=== PATIENT | male | born 1965 | race Caucasian/White ===

== ENCOUNTER → 2016-04-27 | Outpatient (CLI) | payer OTHER ==
[~2016-04-27] MED LIST: ASPCH81X PO; Aspirin PO; EYED OPL; FAMO20TA11 PO; FAMO20TA9 PO; FLUT0.15 NAE; MONT1TAB3 PO; MULT-506 PO; PRED1SUS OPL; flonase
[2016-04-27 17:53] LABS: CHOLESTEROL/HDL RATIO 5.3; PROSTATE SPECIFIC ANTIGEN 1.12 ng/ml (0.000-4.000)
== END | disposition home or self-care (01) ==
LOC: C.LABBFT 10:24
PROVIDERS: ATTEND Internal Medicine
DX: R74.8 Abnormal levels of other serum enzymes (principal); E78.5 Hyperlipidemia, unspecified; Z12.5 Encounter for screening for malignant neoplasm of prostate

== ENCOUNTER → 2016-05-10 | Day surgery (SDC) | payer OTHER ==
[2016-04-28 10:21] VITALS: Ht 185.4 cm; Wt 121.8 kg
[~2016-05-10] VITALS: Ht 185.4 cm; Wt 121.8 kg
[~2016-05-10] MED LIST changes: +500ML BSS 0.3ML EPI 1:1000PF IRRIG ONE; +ACETAMINOPHEN 325 MG TAB PO PRN; +AMVISC PLUS 0.8ML SYRINGE INT OCU ONE; -Aspirin PO; +BSS FLUSH ONE; +EpINEphrine INJ 1MG/ML AMP 1 MG/ML AMP ONE; -FAMO20TA11 PO; +LACTATED RINGER'S 1000ML 500 ML IV SCH; +LIDOCAINE 3.5% OPH GEL PER APPLICATION CHARGE ONE; +LIDOCAINE HCL 1% MPF 2 ML VIAL ONE; +MIDAZOLAM HCL 1 MG/ML 2ML VIAL ONE; +OCUCOAT 1 ML SOLN IO ONE; +POVIDONE-IODINE OP SOLN 30 ML BTL ONE; +PROPARACAINE 0.5% OP SOLN PER DROP CHARGE OPL SCH; +TOBRAMYCIN/DEXAMETHASONE OPH OINT PER APPLN CHARGE ONE; -flonase
--- NOTE | 2016-05-10 11:26 | History & Physical Bridge - SC ---
H&P Re-Evaluation Bridge Note: I have examined the patient, reviewed the History & Physical and in the interval since the performance of the History & Physical I have noted the following changes of clinical significance: Diagnosis: Left Cataract Procedure: Left Cataract Removal with Lens Implant No changes noted
[2016-05-10] MEDS: PHENYLEPHRINE HCL 2.5% OP SOLN PER DROP CHARGE OPL SCH ×2 (11:47→11:52)
[2016-05-10] MEDS: TROPICAMIDE 1% OP SOLN PER DROP CHARGE OPL SCH ×2 (11:48→11:53)
[2016-05-10] MEDS: CYCLOPENTOLATE HCL 1% OP SOLN PER DROP CHARGE OPL SCH ×2 (11:49→11:54)
[2016-05-10] MEDS: KETOROLAC 0.5% OP SOLN PER DROP CHARGE OPL SCH ×2 (11:50→11:55)
[2016-05-10] MEDS: GATIFLOXACIN OP SOLN PER DROP CHARGE OPL SCH ×2 (11:51→12:01)
--- NOTE | 2016-05-10 12:38 | Discharge Instructions-SurgCtr ---
Discharge Instructions Date of Service May 10, 2016. Visit Reason for Visit: Cataract Left Eye Discharge Discharge Diagnosis / Problem: cataract Discharge Goals Goal(s): Improve function Activity Recommendations Activity Limitations: per Instructions/Follow-up section Anesthesia . Post Anesthesia Instructions: If you have had General Anesthesia or IV Sedation: * Do not drive today. * Resume driving when surgeon permits. * Do not make important decisions or sign legal documents today. * Call surgeon for: 1. Temperature elevations greater than 101 degrees F. 2. Uncontrollable pain. 3. Excessive bleeding. 4. Persistent nausea and vomiting. 5. Medication intolerance (nausea, vomiting or rash). * For nausea and vomiting use only clear liquids such as: tea, soda, bouillon until nausea subsides, then gradually increase diet as tolerated. * If you have any concerns or questions, call your surgeon's office. If physician is unavailable and it is an emergency, call 911 or go to the nearest emergency room. . Instructions / Follow-Up Instructions / Follow-Up ACTIVITY RECOMMENDATIONS: * No strenuous lifting, jogging or running for 4 days * No swimming or yard work for 1 week. * Limited bending is permitted, such as putting on shoes. RETURN TO SCHOOL/WORK: No work until seen by physician in office. MEDICATIONS: Resume previous medications unless instructed otherwise by your surgeon. This includes eye drops for glaucoma. Zymaxid/Gatifloxacin (velez cap) - one drop every 2 hours until bedtime Nevanac/Ilevro/Prolensa/Ketorolac (peres cap) - one drop every 4 hours until bedtime Prednisolone (white/pink cap, SHAKE WELL) - one drop every 2 hours until bedtime Starting tomorrow - all 3 drops every 4 hours until seen in the office Optive drops - as needed for discomfort SPECIAL CARE INSTRUCTIONS: * Wear eyeshield when sleeping, for four nights. * You may wear your own glasses or sunglasses while awake. * You may read or watch TV * You may shower and wash your face, but be gentle around the eye and pat dry. * Blurry vision and mild irritation are normal. * Call office if pain is more severe or vision becomes dark at . FOLLOW UP VISIT: Follow-up with Dr Bryant tomorrow. Diet Recommendations Home Diet: resume previous diet Procedures Procedures Performed: Left Cataract Phacoemulsification With Intraocular Lens Implant Pending Studies Studies pending at discharge: no Medical Emergencies . Who to Call and When: Medical Emergencies: If at any time you feel your situation is an emergency, please call 911 immediately. . Non-Emergent Contact Non-Emergency issues call your: [employer] . . "Provider Documentation" section prepared by Ernst Bryant.
--- NOTE | 2016-05-10 12:39 | [facility] Operative Report ---
Operative Report Date of Service May 10, 2016. Operative Report 1. PREOPERATIVE DIAGNOSIS: Cataract of the left eye. 2. POSTOPERATIVE DIAGNOSIS: Same. 3. PROCEDURE: Phacoemulsification with intraocular lens implantation of the left eye. SURGEON: Dr. Ernst Bryant. ANESTHESIA: Topical Lidocaine gel, 1% Non- Preserved intracameral Lidocaine, and monitored intravenous sedation. INDICATIONS FOR THE PROCEDURE: The patient is a 50 - year-old male with a history of cataract of the left eye causing significant visual impairment. The details of the proposed procedure were explained to the patient who asked appropriate questions and following discussion of all risks, benefits and alternatives agreed to have the procedure done. 4. OPERATION AND FINDINGS: DESCRIPTION OF PROCEDURE: After informed consent was obtained, the patient was brought to the Operating Room at the [facility]. The patient was placed in a supine position and then the left eye was prepped and draped in the usual sterile fashion for intraocular surgery. A drop of topical Lidocaine gel was placed in the operative eye. A wire lid speculum was then placed in the fornices. A corneal paracentesis was then created temporally. The Non-Preserved Lidocaine was then instilled into the anterior chamber. The anterior chamber was then pressurized with viscoelastic. A 2.0 mm clear corneal incision was then created temporally. A cystotome was inserted into the anterior chamber and used to create a tear in the anterior lens capsule. This capsular tear was then used to create a small flap and the flap was dragged in a counterclockwise direction in order to create a continuous curvilinear capsulorrhexis. Hydrodissection was accomplished with balanced salt solution. Phacoemulsification of the lens nucleus was then performed in a standard kzcabe-kcz-cwabocx technique. The phaco time was 22 seconds with an average power of 11 %. The remaining cortical material was removed using irrigation aspiration. The capsular bag was then filled with viscoelastic. A [employer]ch [employer] Lomb MI60L + 19.5 diopters lens was then loaded into the injector and injected into the capsular bag. The remaining viscoelastic was removed with the irrigation aspiration handpiece. The wound was hydrated and then checked and found to be watertight. The intraocular pressure was checked and found to be adequate. The wire lid speculum was removed and the patient's face was cleaned and dried. TobraDex ointment was placed in the inferior fornix. The patient was discharged to the Recovery Room having tolerated the procedure well. There were no complications. The patient will be seen tomorrow in the office for follow-up. I attest to the content of the Intraoperative Record and any orders documented therein. Any exceptions are noted below.
[2016-05-10 12:41] VITALS: TEMP 36.7
--- NOTE | 2016-05-10 12:54 | Anesthesia Progress Nt - [facility] ---
Anesthesia Post Op Note Date & Time May 10, 2016 at 12:54 Vital Signs Pain Intensity: 0 Vital Signs Past 12 Hours Date Time Temp Pulse Resp B/P Pulse Ox O2 Delivery O2 Flow Rate FiO2 05/10/16 12:41 36.7 64 16 150/88 94 Room Air 05/10/16 11:30 36.8 69 16 157/93 94 Room Air Notes Mental Status: alert / awake / arousable, participated in evaluation Pt Amnestic to Procedure: Yes Nausea / Vomiting: adequately controlled Pain: adequately controlled Airway Patency, RR, SpO2: stable & adequate BP & HR: stable & adequate Hydration State: stable & adequate Anesthetic Complications: no major complications apparent
[2016-05-10 13:02] VITALS: BP 168/94; PULSE 61; O2SAT 96
== END | disposition home or self-care (01) ==
LOC: X.SURG 11:16
PROVIDERS: ATTEND Ophthalmology
DX: H26.9 Unspecified cataract (principal); Z87.891 Personal history of nicotine dependence; E66.9 Obesity, unspecified; Z68.35 Body mass index [BMI] 35.0-35.9, adult

== ENCOUNTER → 2016-07-05 | Day surgery (SDC) | payer OTHER ==
[2016-05-26 12:48] VITALS: BMI 35.0
[2016-07-04 07:34] VITALS: Ht 185.4 cm; Wt 121.8 kg
[~2016-07-05] VITALS: Ht 185.4 cm; Wt 121.8 kg
[~2016-07-05] MED LIST changes: -500ML BSS 0.3ML EPI 1:1000PF IRRIG ONE; -ACETAMINOPHEN 325 MG TAB PO PRN; -AMVISC PLUS 0.8ML SYRINGE INT OCU ONE; +ATROPINE SULFATE 0.1 MG/ML 5ML SYR IV PRN; -BSS FLUSH ONE; +CYCLOPENTOLATE HCL 1% OP SOLN PER DROP CHARGE OPR SCH; +EpHEDrine SULFATE INJ 50 MG/ML AMP IV PRN; +GATIFLOXACIN OP SOLN PER DROP CHARGE OPR SCH; +KETOROLAC 0.5% OP SOLN PER DROP CHARGE OPR SCH; -OCUCOAT 1 ML SOLN IO ONE; +PHENYLEPHRINE HCL 2.5% OP SOLN PER DROP CHARGE OPR SCH; -PROPARACAINE 0.5% OP SOLN PER DROP CHARGE OPL SCH; +PROPARACAINE 0.5% OP SOLN PER DROP CHARGE OPR SCH; +TROPICAMIDE 1% OP SOLN PER DROP CHARGE OPR SCH
== END | disposition home or self-care (01) ==
LOC: C.PAT 11:32 → EDSTATUS 12:30
PROVIDERS: ATTEND Ophthalmology
DX: H26.9 Unspecified cataract (principal); Z53.8 Procedure and treatment not carried out for other reasons

== ENCOUNTER 2019-04-26 14:11 | Inpatient (IN) ==
--- OUTSIDE RECORDS SUMMARY | 2019-04-26 14:13 | External Medical Summary | Continuity of Care Document ---
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) Snoring (786.09) (R06.83) Allergic rhinitis (477.9) (J30.9) Burning sensation (782.0) (R20.8) Abnormal glucose (790.29) (R73.09) Abnormal iron saturation (790.6) (R79.0) Herpes zoster (053.9) (B02.9) 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 Refills: 0 Vitamin B Complex TABS; gnio duncan M.D. Refills: 0 Vitamin D3 TABS; gino duncan M.D. Refills: 0 Zyrtec TABS; gino directed Amado Refills: 0 Fluticasone Propionate 50 MCG/ACT Nasal Suspension; USE 2 SPRAYS IN EACH NOSTRIL ONCE DAILY STEVEN Baldwin Start: 16-Dec-2014 Quantity: 1 16 GM Bottle Refills: 1 Viagra 50 MG Oral Tablet; TAKE 1 TABLET PRN 1 tab 1 hour before needed max 2 tabs/24 hours MDD:100mg STEVEN Baldwin Start: 22-Apr-2015 Quantity: 6 Refills: 5 Procedures Procedures not documented Immunizations Immunizations not documented Family History Father Family history of Brain tumor (239.6) (D49.6) Status: Active Social History - Smoking Status Ex-smoker Plan of Treatment Planned Observations Planned Goals not documented Results No Known Results Results not documented Encounters Appointment; Toña Urias CRNP 16-Nov-2017 10:30 Encounter Diagnosis: Problem not documented
[2019-04-26] MEDS ORDERED: MoRPHine SULFATE 10 MG/ML CARP/VIAL IV STA (14:25)
--- NOTE | 2019-04-26 14:27 | Emergency Department Note ---
ED Visit Note I assisted attending Dr. Chatman in the care of this patient. Please see attending's note for details of the visit. Kalpana Cruz MD Manager Presentation PGY-3 . Resident Activity Tracking Resident Involvement: Resident Care Provided Care Provided: Adult ED
[2019-04-26] MEDS ORDERED: ONDANSETRON INJ 2 MG/ML 2 ML VIAL IV STA (14:42)
[2019-04-26] MEDS ORDERED: ONDANSETRON INJ 2 MG/ML 2 ML VIAL ONE (14:43)
[2019-04-26 15:05] LABS: Basophils # (auto) 0.02 K/uL (0-0.2); Basophils % (auto) 0.2 %; Eosinophils # (auto) 0.03 K/uL (0-0.5); Eosinophils % (auto) 0.3 %; Hematocrit (blood only) 46.4 % (42-52); Hemoglobin 16.1 g/dL (14.0-18.0); Immature Granulocytes # (auto) 0.03 K/uL (0.00-0.02); Immature Granulocytes % (auto) 0.3 %; Lymphocytes # (auto) 0.94 K/uL (1.2-3.4); Mean Corpuscular Hemoglobin 34.3 pg (25-34); Mean Corpuscular Hgb Conc 34.7 g/dL (32-36); Mean Corpuscular Volume 98.9 fL (80-100); Monocytes # (auto) 0.49 K/uL (0.11-0.59); Monocytes % (auto) 5.7 %; Neutrophils # (auto) 7.07 K/uL (1.4-6.5); Neutrophils % (auto) 82.5 %; Platelet Count 144 K/uL (130-400); RDW Coefficient of Variation 12.2 % (11.5-14.5); RDW Standard Deviation 44.2 fL (36.4-46.3); Red Blood Count 4.69 M/uL (4.7-6.1); White Blood Count 8.58 K/uL (4.8-10.8)
[2019-04-26 15:07] LABS: Appearance Urine Clear (Clear); Bacteria Urine Automated Negative (Negative); Bilirubin Urine Negative (Negative); Blood Urine 1+ (Negative); Color Urine Yellow; Epithelial Cell Urine Auto 0-5 /lpf (0-5); Glucose Urine UA Negative (Negative); Ketones Urine Negative (Negative); Leukocyte Esterase Urine Negative (Negative); Nitrite Urine Negative (Negative); Protein Urine Trace (Negative); RBC Urine Automated 0-4 /hpf (0-4); Specific Gravity Urine 1.021 (1.000-1.030); Urobilinogen Urine Negative (Negative)
[2019-04-26 15:12] LABS: iSTAT Creatinine 1.2 mg/dl (0.6-1.3); iSTAT Hemoglobin 16.3 g/dl (14.0-18.0); iSTAT Ionized Calcium 1.15 mmol/l (1.12-1.32); iSTAT Potassium 3.7 mmol/L (3.3-5.0)
[2019-04-26 15:20] LABS: Albumin Level 3.8 gm/dl (3.4-5.0); BUN Creatinine Ratio 14.2 (10-20); Calcium 8.8 mg/dl (8.5-10.1); Creatinine Clr Calc Pharmacy 96.3 ml/min; Est GFR (African American) 80.1; Est GFR (Non-African American) 69.1; Potassium 3.7 mmol/L (3.5-5.1)
[2019-04-26 15:23] LABS: Bilirubin,Total 0.4 mg/dl (0.2-1); Total Protein 7.8 gm/dl (6.4-8.2)
[2019-04-26] MEDS ORDERED: IOVERSOL 100ml IV PRN (15:26)
--- NOTE | 2019-04-26 15:34 | XRay Report ---
XR chest 1V portable HISTORY: 53 years-old Male hypoxia acute hypoxia COMPARISON: CT abdomen and pelvis of same day, chest radiograph 11/16/2017 TECHNIQUE: Portable AP view of the chest FINDINGS: Minimal dependent bibasilar atelectasis. No pneumothorax, pleural effusion, overt pulmonary edema or airspace consolidation typical for pneumonia. Cardiac silhouette is upper limits of normal in size. M ild degenerative changes of the shoulders and spine. IMPRESSION: No acute process. ACT 112: Negative or not required by law. The above report was generated using voice recognition software. It may contain grammatical, syntax o r spelling errors. Electronically signed by: Blayne Temple M.D. 04/26/2019 3:32 PM
--- NOTE | 2019-04-26 15:46 | CT Scan Report ---
CT OF THE ABDOMEN AND PELVIS WITH CONTRAST CLINICAL HISTORY: Left lower quadrant abdominal pain. COMPARISON STUDY: Right upper quadrant ultrasound March 30, 2015 TECHNIQUE: Following IV administration of 94 mL of Optiray-320, axial images of the abdomen and pelvi s were obtained from the lung bases to the proximal femurs. Images were reviewed in the axial, sagitt al, and coronal planes. IV contrast was administered without complication. Automated exposure contro l was utilized for the study. A dose lowering technique was utilized adhering to the principles of A KASIE. CT DOSE: 1231.77 mGy.cm FINDINGS: Lung bases are unremarkable. A 9 mm x 4 mm proximal left ureteral calculus results in mild to moderate left hydronephrosis with delayed nephrogram and perinephric infiltration. Note is made of a 4 mm left renal calculus and a 4 mm calculus within lower pole of the right kidney. Fatty infiltra tion of the liver is noted. The spleen, adrenal glands and pancreas are normal. There is no evidence for a bowel obstruction. The appendix is normal. There are no suspicious osseous lesions. There is no evidence for a bowel obstruction. No biliary or pancreatic ductal dilatation is noted. IMPRESSION: 1. 9 mm x 4 mm proximal left ureteral calculus which results in mild to moderate left hydronephrosis with delayed nephrogram and perinephric infiltration. 2. Bilateral nephrolithiasis. 3. Fatty liver. ACT 112: Negative or not required by law. Electronically signed by: Kurt Valles M.D. 04/26/2019 3:44 PM
[2019-04-26] MEDS ORDERED: MoRPHine SULFATE 4 MG/ML 1 ML CARP\\VIAL IV STA ×2 (16:03→18:06)
[2019-04-26] MEDS: SODIUM CHLORIDE 0.9% 1000ML 1,000 ML IV SCH ×3 (16:14→18:58)
--- NOTE | 2019-04-26 17:33 | History & Physical Report ---
Date of Service April 26, 2019 Assessment & Plan (1) Nephrolithiasis: Admit to [facility] on telemetry, Vital signs every 4 hours, Continue IV fluid hydration, Pain management and antinausea management, Consult urology, N.p.o. after midnight for possible procedure tomorrow and removal of the kidney stone. DVT prophylaxis: SCDs and teds Full code Present on Admission?: Yes (2) Renal colic on left side: As discussed above Present on Admission?: Yes (3) Seasonal allergies: Continue Cetrizine Present on Admission?: Yes (4) Elevated transaminase level: Likely due to fatty liver Hemoglobin A1c pending Continue trending down transaminases, Hepatitis panel pending, Liver sonogram pending, Alpha-fetoprotein pending Consult GI Present on Admission?: Yes History of Present Illness Chief Complaint: Left flank pain Primary Care Provider: SANTOS Reilly The patient is a 54 years old male without significant past medical history who presents to the emergency room complaining of left flank pain that started this morning and it was worsening. Patient denies fever, chills, chest pain, shortness of breath, abdominal pain, frequency, urgency. Labs are reviewed: WBC is 8.58, hemoglobin 16.1, hematocrit 46.4, platelets 144, sodium 139, potassium 3.7, chloride 105, carbon dioxide 27, BUN 17, creatinine 1.2, GFR 69.1, AST 132, ALT 231, alkaline phosphatase 71, total protein 7.8, albumin 3.8, globulin 4, lipase 310. Abdominal CT shows lung bases are unremarkable, a 9 mm x 4 mm proximal left ureteral calculus that results in mild to moderate left hydronephrosis with delayed nephrogram and perinephritic infiltration. Note is made of a 4 mm left renal calculus and a 4 mm calculus within the lower pole of the right kidney. Fatty infiltration of the liver is noted. The spleen and adrenal glands and pancreas are normal. There is no evidence for a bowel obstruction. The appendix is normal. There is no suspicious osseous lesion. There is no evidence for a bowel obstruction. No biliary or pancreatic duct dilatation is noted. Chest x-ray no acute process. Minimal dependent bibasilar atelectasis. No pneumothorax, pleural effusion, overt pulmonary edema or airspace consolidation typical for pneumonia. Cardiac silhouette is upper limit of the normal in size. Mild degenerative changes of the shoulders and spine. Decision was made to admit patient to [facility] on telemetry for further evaluation and treatment of nephrolithiasis and possible surgical intervention. Allergies Allergy/AdvReac Type Severity Reaction Status Date / Time No Known Allergies Allergy Verified 04/26/19 16:03 Home Medications Home Medications Medication Instructions Recorded Confirmed Type Liver Aid 1 tab PO QAM 04/26/19 04/26/19 History aspirin 81 mg PO QAM 04/26/19 04/26/19 History cetirizine [Zyrtec] 10 mg PO QAM 04/26/19 04/26/19 History magnesium 250 mg PO QAM 04/26/19 04/26/19 History ktcczlxoexom-[id number]-[id number] 1 tab PO QAM 04/26/19 04/26/19 History [Multivitamin 50 Plus] omeprazole magnesium [Prilosec OTC] 20 mg PO QAM 04/26/19 04/26/19 History Past Med/Surg History Family History Other No pertinent family history Social History Preferred Language: Beninese marital status: current occupational status: employed Feels Safe at Home: Yes Smoking Status: Never smoker Review of Systems Review of Systems: All systems reviewed & are unremarkable except as noted in HPI & below Physical Exam Constitutional: WD/WN, vitals as above well developed, + ill appearing and + morbidly obese Eyes: PERRL, conjunctivae normal, anicteric sclerae ENMT: external ear and nose normal, oropharynx normal Neck: trachea midline, no thyromegaly Respiratory: normal respiratory effort, lungs clear to auscultation Cardiovascular: RRR, no murmur, no edema Rate/Rhythm: + tachycardic Gastrointestinal (Abdomen): normal bowel sounds, soft, nontender, no hepatosplenomegaly Musculoskeletal: no cyanosis or clubbing, extremities motor strength 5/5 Skin: no rashes, warm and dry Neurologic: patellar DTR's 2+ bilat, sensation intact Psychiatric: A+Ox3, euthymic affect Lymphatic: no cervical or axillary lymphadenopathy Results & Data Vital Signs (Past 12 Hours) Vital Signs Temp Pulse Pulse Resp BP BP Pulse Ox 04/26/19 17:00 66 22 177/97 H 98 04/26/19 16:08 72 24 195/117 H 94 04/26/19 15:27 79 22 183/113 H 95 04/26/19 15:08 95 04/26/19 14:58 86 L 04/26/19 14:12 36.3 C L 63 20 221/115 H 95 Code Status & VTE Plan Code Status Full code VTE Prophylaxis Plan VTE Prophylaxis will be ordered: Yes PG Care Time/CCT Total # of Minutes Spent Total Time Spent with Patient: Total time spent is greater than 50% in coordination of care (as documented) at patient's floor/unit and/or counseling patient: Coding Level of Care Code 07255 Initial Inpt Care Lvl 3 Diagnoses Nephrolithiasis N20.0 Renal colic on left side N23 Seasonal allergies J30.2 Elevated transaminase level R74.0
[2019-04-26] MEDS ORDERED: MoRPHine SULFATE 4 MG/ML 1 ML CARP\\VIAL ONE (18:07)
[2019-04-26] MEDS ORDERED: ALUMINUM/MAGNESIUM SUSP 30 ML UDC PO PRN (18:40)
[2019-04-26] MEDS ORDERED: POLYETHYLENE (MIRALAX) 17 GM PACK PO PRN (18:40)
[2019-04-26] MEDS ORDERED: ACETAMINOPHEN 325 MG TAB PO PRN (18:40)
[2019-04-26] MEDS ORDERED: MAGNESIUM HYDROXIDE SUSP 30 ML UDC PO PRN (18:40)
[2019-04-26] MEDS ORDERED: ONDANSETRON INJ 2 MG/ML 2 ML VIAL IV PRN (18:40)
--- NOTE | 2019-04-26 19:59 | Emergency Department Note ---
Entered by Fay Curry acting as a scribe for History of Present Illness General Chief complaint: Abdominal Pain Stated complaint: LEFT QUAD PAIN,VOMITING Time Seen by Provider: 04/26/19 14:19 Source: patient Mode of arrival: ambulatory Limitations: no limitations History of Present Illness Provider complaint: Abdominal pain Onset (ago): day(s) 3 Location: abdomen Pain Consistency: + other (worsening) Maximum Pain Intensity: 10 Quality: + other (tightness) Relieved By: + none Exacerbated By: + none Associated symptoms: + fever/chills (subjective fevers), + nausea/vomiting and + other (Denies: rhinorrhea, urinary symptoms); no cough Treatments prior to arrival: none The patient is a 53 year old male with no significant past medical history who presents to the Emergency Room with complaints of worsening abdominal pain starting 3 days ago. The patient reports that his pain started in his left lower quadrant and has now spread across his entire abdomen. He describes his pain as a tightness, and he states nothing improves and exacerbates it. The patient explains that his abdominal pain has been accompanied by subjective fevers, chills, and vomiting starting about an hour prior to arrival. He denies any cough, rhinorrhea, and urinary symptoms. He notes that he has never experienced these symptoms before and has no known history of diverticulitis and abdominal surgeries. The patient reports that he had a normal bowel movement this morning. Home Medications Home Medications Medication Instructions Recorded Confirmed Type Liver Aid 1 tab PO QAM 04/26/19 04/26/19 History aspirin 81 mg PO QAM 04/26/19 04/26/19 History cetirizine [Zyrtec] 10 mg PO QAM 04/26/19 04/26/19 History magnesium 250 mg PO QAM 04/26/19 04/26/19 History rqxosgfjqlcf-cuvtqjow-fmsfsz 1 tab PO QAM 04/26/19 04/26/19 History [Multivitamin 50 Plus] omeprazole magnesium [Prilosec OTC] 20 mg PO QAM 04/26/19 04/26/19 History Allergies Allergy/AdvReac Type Severity Reaction Status Date / Time No Known Allergies Allergy Verified 04/26/19 16:03 Past Med/Surg History Family History Other No pertinent family history Social History Preferred Language: [place] [employer] Required: No Beliefs That Will Affect Care: None marital status: Current Living Situation: Spouse and Family current occupational status: employed Feels Safe at Home: Yes Smoking Status: Former smoker Tobacco Type: smokeless tobacco ; Second Hand Exposure: Yes ; Hx Alcohol Use: Yes Alcohol type: beer and hard liquor Hx Substance Use: No Review of Systems See HPI for pertinent positives & negatives. and A total of 10 systems reviewed and were otherwise negative Physical Exam Vital Signs Vital Signs - 24 hr 04/26/19 14:12 04/26/19 14:58 04/26/19 15:08 Temperature 36.3 C L Temperature Source Oral Pulse Rate 63 Pulse Rate [Right Finger] Respiratory Rate 20 Blood Pressure 221/115 H Blood Pressure [Left Arm] Blood Pressure Mean 150 Blood Pressure Mean [Left Arm] Pulse Oximetry 95 86 L 95 Oxygen Delivery Method Room Air Room Air Oxymask Oxygen Flow Rate 2 Sepsis Recent Fever Within 48 Hours No Sepsis New/Unexplained Change in Mental Status No Sepsis Action Taken by Nursing No Action Required 04/26/19 15:27 04/26/19 16:08 04/26/19 17:00 Temperature Temperature Source Pulse Rate Pulse Rate [Right Finger] 79 72 66 Respiratory Rate 22 24 22 Blood Pressure Blood Pressure [Left Arm] 183/113 H 195/117 H 177/97 H Blood Pressure Mean Blood Pressure Mean [Left Arm] 136 143 123 Pulse Oximetry 95 94 98 Oxygen Delivery Method Oxymask Room Air Oxymask Oxygen Flow Rate 2 2 Sepsis Recent Fever Within 48 Hours Sepsis New/Unexplained Change in Mental Status Sepsis Action Taken by Nursing GENERAL: laying in bed, significant distress, holding left abdomen EYE EXAM: normal conjunctiva OROPHARYNX: no exudate, no erythema, lips, buccal mucosa, and tongue normal and mucous membranes are moist NECK: supple, no nuchal rigidity, no adenopathy, non-tender LUNGS: Clear to auscultation. Normal chest wall mechanics HEART: no murmurs, S1 normal and S2 normal ABDOMEN: abdomen soft, non-tender, normo-active bowel sounds, no masses, no rebound or guarding. BACK: Back is symmetrical on inspection and there is no deformity, no midline tenderness, no CVA tenderness. SKIN: no rashes and no bruising UPPER EXTREMITIES: upper extremities are grossly normal. LOWER EXTREMITIES: No pitting edema. NEURO EXAM: Normal sensorium, cranial nerves II-XII grossly intact, normal speech, no gross weakness of arms, no gross weakness of legs. Gross sensation intact. Course Course ED COURSE: Vital signs were reviewed and showed hypertension The patients medical record was reviewed The above diagnostic studies were performed and reviewed. ED treatments and interventions as stated above. 1420: At this time the patient was evaluated by the resident, Dr. Kalpana Cruz. The resident's findings were discussed with me. We discussed a possible treatment plan and differential diagnoses for the patient. 1420: The patient was evaluated in room B3B. A complete history and physical examination was performed. 1607: Dr. Cruz reviewed the patient's case with Dr. eMjia - Hospitalist. Dr. Mejia will evaluate the patient for further management. Dr. Mejia requested that Dr. Cruz consult urology. 1614: Dr. Cruz discussed the patient's case with Dr. Quiñonez - Urology, [facility]. 1630: Upon reevaluation, the patient is resting. I discussed my findings with the patient and he understands and agrees with the treatment plan. Based on the patients age, coexisting illnesses, exam and lab findings the decision to treat as an inpatient was made. The patient remained stable while under my care. The patient will be evaluated for further management. Administered Medications Sodium Chloride (Nss 1000ml) 1,000 mls @ 100 mls/hr IV .Q10H CHAS Stop: 05/26/19 18:39 Last Admin: 04/26/19 18:58 Dose: 100 mls/hr Documented by: [id number] Discontinued Medications Ondansetron HCl (Zofran) 8 mg in 54 mls @ 216 mls/hr IV NOW STA Stop: 04/26/19 14:39 Last Admin: 04/26/19 15:16 Dose: Not Given Documented by: [id number] Sodium Chloride (Nss 1000ml) 1,000 mls @ 999 mls/hr IV .Q1H1M CHAS Stop: 04/26/19 18:04 Last Infusion: 04/26/19 18:50 Dose: 0 mls/hr Documented by: [id number] Admin: 04/26/19 17:10 Dose: 999 mls/hr Documented by: [id number] Infusion: 04/26/19 17:10 Dose: 0 mls/hr Documented by: [id number] Admin: 04/26/19 16:14 Dose: 999 mls/hr Documented by: [id number] Ioversol (Optiray 320 100ml) 94 ml IV ONCE PRN PRN Reason: Interaction Checking Stop: 04/30/19 15:25 Last Admin: 04/26/19 15:26 Dose: 94 ml Documented by: [id number] Morphine Sulfate (Morphine Sulfate) 8 mg IV NOW STA Stop: 04/26/19 14:26 Last Admin: 04/26/19 14:45 Dose: 8 mg Documented by: [id number] Morphine Sulfate (Morphine Sulfate) 4 mg IV NOW STA Stop: 04/26/19 16:04 Last Admin: 04/26/19 16:14 Dose: 4 mg Documented by: [id number] Morphine Sulfate (Morphine Sulfate) 4 mg IV NOW STA Stop: 04/26/19 18:07 Last Admin: 04/26/19 18:11 Dose: 4 mg Documented by: [id number] Morphine Sulfate (Morphine Sulfate) Confirm Administered Dose 4 mg .ROUTE .STK- MED ONE Stop: 04/26/19 18:08 Last Admin: 04/26/19 18:12 Dose: Not Given Documented by: [id number] Ondansetron HCl (Zofran) 4 mg IV NOW STA Stop: 04/26/19 14:43 Last Admin: 04/26/19 14:45 Dose: 4 mg Documented by: [id number] Ondansetron HCl (Zofran) Confirm Administered Dose 4 mg .ROUTE .STK-MED ONE Stop: 04/26/19 14:44 Last Admin: 04/26/19 15:13 Dose: Not Given Documented by: [id number] Medical Decision Making Differential Diagnosis Differential diagnoses includes but is not limited to gastritis, peptic ulcer disease, GERD, gallbladder disease, pancreatitis, small bowel obstruction, acute coronary syndrome, pericarditis, ischemic bowel, irritable bowel disease, irritable bowel syndrome, appendicitis, diverticulitis, malignancy, hernia, urinary tract infection, torsion, perforation, trauma, infectious. Medical Records Attestation: I reviewed the patient's medical records. Home Medications Current Medication List: was personally reviewed by me Laboratory Data Result diagrams: 04/26/19 14:40 04/26/19 14:40 Lab Results 04/26/19 04/26/19 04/26/19 Range/Units 14:40 14:40 14:40 WBC 8.58 (4.8-10.8) K/uL RBC 4.69 L (4.7-6.1) M/uL Hgb 16.1 (14.0-18.0) g/dL POC Hgb (14.0-18.0) g/dl Hct 46.4 (42-52) % POC Hct (42-52) % MCV 98.9 (80-100) fL MCH 34.3 H (25-34) pg MCHC 34.7 (32-36) g/dL RDW Std Deviation 44.2 (36.4-46.3) fL RDW Coeff of Keri 12.2 (11.5-14.5) % Plt Count 144 (130-400) K/uL MPV 11.0 H (7.4-10.4) fL Immature Gran % (Auto) 0.3 % Neut % (Auto) 82.5 % Lymph % (Auto) 11.0 % Bay % (Auto) 5.7 % Eos % (Auto) 0.3 % Baso % (Auto) 0.2 % Immature Gran # (Auto) 0.03 H (0.00-0.02) K/uL Neut # (Auto) 7.07 H (1.4-6.5) K/uL Lymph # (Auto) 0.94 L (1.2-3.4) K/uL Bay # (Auto) 0.49 (0.11-0.59) K/uL Eos # (Auto) 0.03 (0-0.5) K/uL Baso # (Auto) 0.02 (0-0.2) K/uL POC Sodium (135-144) mmol/L Sodium 139 (136-145) mmol/L POC Potassium (3.3-5.0) mmol/L Potassium 3.7 (3.5-5.1) mmol/L POC Chloride (101-112) mmol/L Chloride 105 (98-107) mmol/L Carbon Dioxide 27 (21-32) mmol/L POC Total CO2 (24-31) mEq/l Anion Gap 7.0 (3-11) POC Anion Gap (16-25) mmol/L POC BUN (7-18) mg/dl BUN 17 (7-18) mg/dl Creatinine 1.20 (0.6-1.4) mg/dl POC Creatinine (0.6-1.3) mg/dl Est Cr Clr Drug Dosing 96.3 ml/min Est GFR ( Amer) 80.1 Est GFR (Non-Af Amer) 69.1 BUN/Creatinine Ratio 14.2 (10-20) Glucose 119 H (70-99) mg/dl POC Glucose (other) (70-99) mg/dl Calcium 8.8 (8.5-10.1) mg/dl POC Ioniz Calcium [place] (1.12-1.32) mmol/l Total Bilirubin 0.4 (0.2-1) mg/dl AST 132 H (15-37) U/L ALT 231 H (12-78) U/L Alkaline Phosphatase 71 (45-117) U/L Total Protein 7.8 (6.4-8.2) gm/dl Albumin 3.8 (3.4-5.0) gm/dl Globulin 4.0 (2.5-4.0) gm/dl Albumin/Globulin Ratio 1.0 (0.9-2) Lipase 310 (73-393) U/L TSH 1.540 (0.300-4.500) uIu/ml Urine Color Urine Appearance (Clear) Urine pH (4.5-7.5) Ur Specific [place] (1.000-1.030) Urine Protein (Negative) Urine Glucose (UA) (Negative) Urine Ketones (Negative) Urine Blood (Negative) Urine Nitrite (Negative) Urine Bilirubin (Negative) Urine Urobilinogen (Negative) Ur Leukocyte Esterase (Negative) Urine WBC (Auto) (0-5) /hpf Urine RBC (Auto) (0-4) /hpf U Hyaline Cast (Auto) (0-5) /lpf U Epithel Cells (Auto) (0-5) /lpf Urine Bacteria (Auto) (Negative) 04/26/19 04/26/19 Range/Units 14:50 14:56 WBC (4.8-10.8) K/uL RBC (4.7-6.1) M/uL Hgb (14.0-18.0) g/dL POC Hgb 16.3 (14.0-18.0) g/dl Hct (42-52) % POC Hct 48 (42-52) % MCV (80-100) fL MCH (25-34) pg MCHC (32-36) g/dL RDW Std Deviation (36.4-46.3) fL RDW Coeff of Keri (11.5-14.5) % Plt Count (130-400) K/uL MPV (7.4-10.4) fL Immature Gran % (Auto) % Neut % (Auto) % Lymph % (Auto) % Bay % (Auto) % Eos % (Auto) % Baso % (Auto) % Immature Gran # (Auto) (0.00-0.02) K/uL Neut # (Auto) (1.4-6.5) K/uL Lymph # (Auto) (1.2-3.4) K/uL Bay # (Auto) (0.11-0.59) K/uL Eos # (Auto) (0-0.5) K/uL Baso # (Auto) (0-0.2) K/uL POC Sodium 140 (135-144) mmol/L Sodium (136-145) mmol/L POC Potassium 3.7 (3.3-5.0) mmol/L Potassium (3.5-5.1) mmol/L POC Chloride 103 (101-112) mmol/L Chloride (98-107) mmol/L Carbon Dioxide (21-32) mmol/L POC Total CO2 27 (24-31) mEq/l Anion Gap (3-11) POC Anion Gap 15.0 L (16-25) mmol/L POC BUN 17 (7-18) mg/dl BUN (7-18) mg/dl Creatinine (0.6-1.4) mg/dl POC Creatinine 1.2 (0.6-1.3) mg/dl Est Cr Clr Drug Dosing ml/min Est GFR ( Amer) Est GFR (Non-Af Amer) BUN/Creatinine Ratio (10-20) Glucose (70-99) mg/dl POC Glucose (other) 120 H (70-99) mg/dl Calcium (8.5-10.1) mg/dl POC Ioniz Calcium [place] 1.15 (1.12-1.32) mmol/l Total Bilirubin (0.2-1) mg/dl AST (15-37) U/L ALT (12-78) U/L Alkaline Phosphatase (45-117) U/L Total Protein (6.4-8.2) gm/dl Albumin (3.4-5.0) gm/dl Globulin (2.5-4.0) gm/dl Albumin/Globulin Ratio (0.9-2) Lipase (73-393) U/L TSH (0.300-4.500) uIu/ml Urine Color Yellow Urine Appearance Clear (Clear) Urine pH 5.0 (4.5-7.5) Ur Specific [place] 1.021 (1.000-1.030) Urine Protein Trace H (Negative) Urine Glucose (UA) Negative (Negative) Urine Ketones Negative (Negative) Urine Blood 1+ H (Negative) Urine Nitrite Negative (Negative) Urine Bilirubin Negative (Negative) Urine Urobilinogen Negative (Negative) Ur Leukocyte Esterase Negative (Negative) Urine WBC (Auto) 1-5 (0-5) /hpf Urine RBC (Auto) 0-4 (0-4) /hpf U Hyaline Cast (Auto) 5-10 H (0-5) /lpf U Epithel Cells (Auto) 0-5 (0-5) /lpf Urine Bacteria (Auto) Negative (Negative) Imaging Data Radiologist's Impression: Radiology results as stated below per my review and the radiologist's interpretation: XR chest 1V portable HISTORY: 53 years-old Male hypoxia acute hypoxia COMPARISON: CT abdomen and pelvis of same day, chest radiograph 11/16/2017 TECHNIQUE: Portable AP view of the chest FINDINGS: Minimal dependent bibasilar atelectasis. No pneumothorax, pleural effusion, overt pulmonary edema or airspace consolidation typical for pneumonia. Cardiac silhouette is upper limits of normal in size. Mild degenerative changes of the shoulders and spine. IMPRESSION: No acute process. ACT 112: Negative or not required by law. The above report was generated using voice recognition software. It may contain grammatical, syntax or spelling errors. Electronically signed by: Blayne Temple M.D. 04/26/2019 3:[address] OF THE ABDOMEN AND PELVIS WITH CONTRAST CLINICAL HISTORY: Left lower quadrant abdominal pain. COMPARISON STUDY: Right upper quadrant ultrasound March 30, 2015 TECHNIQUE: Following IV administration of 94 mL of Optiray-320, axial images of the abdomen and pelvis were obtained from the lung bases to the proximal femurs. Images were reviewed in the axial, sagittal, and coronal planes. IV contrast was administered without complication. Automated exposure control was utilized for the study. A dose lowering technique was utilized adhering to the principles of ALARA. CT DOSE: 1231.77 mGy.cm FINDINGS: Lung bases are unremarkable. A 9 mm x 4 mm proximal left ureteral calculus results in mild to moderate left hydronephrosis with delayed nephrogram and perinephric infiltration. Note is made of a 4 mm left renal calculus and a 4 mm calculus within lower pole of the right kidney. Fatty infiltration of the liver is noted. The spleen, adrenal glands and pancreas are normal. There is no evidence for a bowel obstruction. The appendix is normal. There are no suspicious osseous lesions. There is no evidence for a bowel obstruction. No biliary or pancreatic ductal dilatation is noted. IMPRESSION: 1. 9 mm x 4 mm proximal left ureteral calculus which results in mild to moderate left hydronephrosis with delayed nephrogram and perinephric infiltration. 2. Bilateral nephrolithiasis. 3. Fatty liver. ACT 112: Negative or not required by law. Electronically signed by: Kurt Valles M.D. 04/26/2019 3:44 PM Blood Pressure Blood Pressure Findings: Elevated blood pressure Blood Pressure Disposition: further management by hospitalist MDM Narrative Patient is a 53-year-old male presents the ER for left lower quadrant and left flank pain. He is in severe distress on exam. IV was established blood work was obtained shows no significant leukocytosis or anemia. BMP with a slightly elevated glucose. LFTs were elevated bilirubin unremarkable. Lipase and TSH unremarkable. UA with hematuria. CT abdomen pelvis shows 9 mm stone with moderate hydronephrosis. Patient was given IV fluids and IV morphine. Updated bedside. Discussed with the hospitalist as patient was significant uncomfortable requiring multiple dose of narcotics and actually became hypoxic. Wrist x-ray was unremarkable. Impression & Plan Renal colic, Hydronephrosis Discharge Plan Visit Data *Final* Discharge Date/Time: 04/26/19 18:40 Chief Complaint: Abdominal Pain Stated Complaint: LEFT QUAD PAIN,VOMITING ED Provider: Artem Chatman ED Midlevel Provider: Kalpana Cruz Discharge Problem: Renal colic, Hydronephrosis Patient Disposition: Admitted As Inpatient Discharge Instructions Interventions: ED Discharge Assessment Last Done: 04/26/19 18:40 Discharge Problem: Hydronephrosis Qualifiers: Hydronephrosis type: unspecified Qualified Code(s): N13.30 - Unspecified hydronephrosis The scribe's documentation has been prepared under my direction and personally reviewed by me in its entirety. I confirm that the note above accurately reflects all work, treatment, procedures, and medical decision making performed by me.
[2019-04-26] MEDS: MoRPHine SULFATE 4 MG/ML 1 ML CARP\\VIAL IV PRN (21:21)
[2019-04-27] MEDS: MoRPHine SULFATE 4 MG/ML 1 ML CARP\\VIAL IV PRN ×2 (00:21→03:52)
--- NOTE | 2019-04-27 01:37 | Consultation Report ---
DATE OF CONSULTATION: 04/26/2019 REASON FOR THE CONSULT: Proximal left ureteral stone. HISTORY OF PRESENTATION: The patient is a 53-year-old male with no previous history of stone disease who began to have discomfort several days ago, but it seemed to get better. This morning, he had onset of more severe pain and presented to the emergency room where he had a CAT scan that showed a 9 x 4 proximal left ureteral stone. The x-ray also showed a fatty liver. The patient had a normal white blood cell count and urinalysis was normal and he denies any fever. He is having ongoing pain. Of note, he did have a fatty liver with elevated liver function studies. He does drink 4-5 beers a night. He also has a history of chewing tobacco. He has no known drug allergies. His only surgery previously is retina surgery. He denies any history of high blood pressure, cardiac disease or diabetes. No family history of prostate cancer. PHYSICAL EXAMINATION: GENERAL: The patient is a well-developed male in moderate distress. His blood pressure was somewhat elevated. HEENT: Unremarkable. LUNGS: He has no respiratory distress. ABDOMEN: He does have left-sided abdominal left flank pain to percussion. Abdomen otherwise is soft, nontender. GENITOURINARY: Testes are descended bilaterally without mass. Normal circumcised male phallus with normal meatus. Prostate exam is deferred. EXTREMITIES: Unremarkable. He has no pedal edema. NEUROLOGIC: He is alert and oriented without any focal sensory deficit. Of note, his meds are aspirin, Zyrtec, magnesium and omeprazole. Discussed the options with the patient and given the location of the stone, we will check a protime in the morning. I told him we will also get a KUB to see if the stone progresses. We either place the stent in the morning or possibly perform ureteroscopy depending upon location of the stone. The patient understands he may need additional procedures including lithotripsy and/or repeat ureteroscopy. ADDENDUM I discussed the procedure with the patient including options including observation, lithotripsy without a stent and he understands and agrees to proceed. I also discussed the risks including damage to the ureter if ureteroscopy was performed as open surgical repair.
[2019-04-27] MEDS: HydrALAZINE 10 MG TAB PO PRN ×3 (03:33→14:30)
[2019-04-27] MEDS: SODIUM CHLORIDE 0.9% 1000ML 1,000 ML IV SCH (05:06)
[2019-04-27 06:48] LABS: Basophils # (auto) 0.01 K/uL (0-0.2); Basophils % (auto) 0.1 %; Eosinophils # (auto) 0.01 K/uL (0-0.5); Eosinophils % (auto) 0.1 %; Hematocrit (blood only) 45.6 % (42-52); Hemoglobin 15.4 g/dL (14.0-18.0); Immature Granulocytes # (auto) 0.02 K/uL (0.00-0.02); Immature Granulocytes % (auto) 0.2 %; Lymphocytes # (auto) 0.85 K/uL (1.2-3.4); Lymphocytes % (auto) 9.9 %; Mean Corpuscular Hemoglobin 33.7 pg (25-34); Mean Corpuscular Hgb Conc 33.8 g/dL (32-36); Mean Corpuscular Volume 99.8 fL (80-100); Mean Platelet Volume 11.1 fL (7.4-10.4); Monocytes # (auto) 0.71 K/uL (0.11-0.59); Monocytes % (auto) 8.3 %; Neutrophils # (auto) 6.95 K/uL (1.4-6.5); Neutrophils % (auto) 81.4 %; Platelet Count 143 K/uL (130-400); RDW Coefficient of Variation 12.1 % (11.5-14.5); RDW Standard Deviation 44.3 fL (36.4-46.3); Red Blood Count 4.57 M/uL (4.7-6.1); White Blood Count 8.55 K/uL (4.8-10.8)
[2019-04-27 06:59] LABS: Partial Thromboplastin Ratio 0.9; Partial Thromboplastin Time 25.3 Seconds (21.0-31.0); Prothrombin Time 10.6 Seconds (9.0-12.0)
[2019-04-27 07:22] LABS: Estimated Average Glucose 117 mg/dl; Hemoglobin A1C 5.7 % (4.5-5.6)
[2019-04-27 07:26] LABS: Albumin Level 3.5 gm/dl (3.4-5.0); BUN Creatinine Ratio 9.5 (10-20); Calcium 8.5 mg/dl (8.5-10.1); Creatinine Clr Calc Pharmacy 77.3 ml/min; Est GFR (African American) 60.7; Est GFR (Non-African American) 52.3
[2019-04-27 07:29] LABS: Albumin Globulin Ratio 0.9 (0.9-2); Bilirubin,Total 0.8 mg/dl (0.2-1); Globulin 3.8 gm/dl (2.5-4.0); Total Protein 7.3 gm/dl (6.4-8.2)
[2019-04-27 08:48] LABS: Carcinoembryonic Antigen 0.9 ng/ml (0-2.5)
[2019-04-27 09:00] LABS: Hepatitis B Surface Antigen Neg (Neg)
[2019-04-27] MEDS ORDERED: PANTOprazole 40 MG TAB PO SCH (09:00)
[2019-04-27] MEDS ORDERED: CETIRIZINE HCL 10 MG TABLET PO SCH (09:00)
[2019-04-27] MEDS ORDERED: ASPIRIN 81 MG ECTAB PO SCH (09:00)
[2019-04-27] MEDS ORDERED: MAGNESIUM OXIDE 400 MG TAB PO SCH (09:00)
[2019-04-27] MEDS ORDERED: CEROVITE ADV FORMULA TAB PO SCH (09:00)
--- NOTE | 2019-04-27 09:07 | XRay Report ---
XR KUB/Abdomen 1 view CLINICAL HISTORY: 53 years-old Male presenting with ureteral stone. TECHNIQUE: Single supine view of the abdomen was obtained. COMPARISON: CT from yesterday. FINDINGS: Nonobstructive bowel gas pattern. No gross pneumoperitoneum. 5 mm calcification noted along the course of the left ureter at the level of L4. This is likely sligh tly progressed from the prior exam. Stable distribution of pelvic phleboliths. The right renal calcul us evident on CT is not well demonstrated on this exam. Mild degenerative changes of the spine. Lung bases clear. IMPRESSION: 1. Slight interval progression of the 5 mm left ureteral calculus now located at the level of L4. 2. Right nephrolithiasis better demonstrated on prior CT. ACT 112: Negative or not required by law. Electronically signed by: Minh Christensen M.D. 04/27/2019 9:06 AM
[2019-04-27] MEDS ORDERED: fentaNYL citrate 100 MCG/2 ML VIAL ONE ×2 (09:23→10:37)
[2019-04-27] MEDS ORDERED: ONDANSETRON INJ 2 MG/ML 2 ML VIAL ONE (09:23)
[2019-04-27] MEDS ORDERED: MIDAZOLAM HCL 1 MG/ML 2ML VIAL ONE (09:23)
[2019-04-27] MEDS ORDERED: PROPOFOL IV EMULSION 10 MG/ML 20 ML VIAL IV ONE (09:23)
[2019-04-27] MEDS ORDERED: LIDOCAINE HCL 2% 2 ML VIAL/AMP(20MG/ML) INFIL ONE (09:23)
[2019-04-27 09:28] LABS: Hepatitis C IgG 13Yrs+Old_Rflx Neg (Neg)
--- NOTE | 2019-04-27 09:40 | Anesthesiology Consultation ---
Date of Service April 27, 2019 History Surgery Operation Date: 04/27/19 10:00 Proposed Procedures p Cystoscopy - Aroldo Quiñonez MD Height/Weight Height: 6 ft Weight: 122.3 kg Allergies Allergy/AdvReac Type Severity Reaction Status Date / Time No Known Allergies Allergy Verified 04/26/19 16:03 Medications Home Medications Medication Instructions Recorded Confirmed Last Taken Liver Aid 1 tab PO QAM 04/26/19 04/26/19 04/26/19 aspirin 81 mg PO QAM 04/26/19 04/26/19 04/26/19 cetirizine [Zyrtec] 10 mg PO QAM 04/26/19 04/26/19 04/26/19 magnesium 250 mg PO QAM 04/26/19 04/26/19 04/26/19 [id number]-[id number]-[id number] 1 tab PO QAM 04/26/19 04/26/19 04/26/19 [Multivitamin 50 Plus] omeprazole magnesium [Prilosec OTC] 20 mg PO QAM 04/26/19 04/26/19 04/26/19 Active Medications Generic Name Dose Route Start Last Admin Trade Name Freq PRN Reason Stop Dose Admin Cetirizine HCl 10 mg 04/27/19 09:00 04/27/19 08:02 Zyrtec PO 05/27/19 08:59 10 mg QAM CHAS Administration Hydralazine HCl 10 mg 04/26/19 19:43 04/27/19 07:06 Apresoline PO 05/26/19 20:59 10 mg QID PRN Administration blood pressure high Sodium Chloride 1,000 mls @ 100 mls/hr 04/26/19 18:40 04/27/19 05:06 Nss 1000ml IV 05/26/19 18:39 100 mls/hr .Q10H CHAS Administration Magnesium Oxide 400 mg 04/27/19 09:00 04/27/19 08:02 Mag-Ox PO 05/27/19 08:59 400 mg QAM CHAS Administration Morphine Sulfate 4 mg 04/26/19 18:40 04/27/19 03:52 Morphine Sulfate IV 05/10/19 18:39 4 mg Q2H PRN Administration Pain Multivitamins/Minerals 1 tab 04/27/19 09:00 04/27/19 08:02 Multivitamin W/ Minerals Tab PO 05/27/19 08:59 1 tab QAM CHAS Administration Pantoprazole Sodium 40 mg 04/27/19 09:00 04/27/19 08:02 Protonix PO 05/27/19 08:59 40 mg QAM CHAS Administration Exercise / Class Metabolic Activity II 4-5 Yardwork/Stairs/Walk up hill Past Family History Family History Other No pertinent family history Past Anesthesia History No Hx of Anesthesia Complications and No Family Hx of Anesthesia Complications History of PONV No Hx of PONV and No Hx of Motion Sickness Social History Smoking Status: Former smoker tobacco type: smokeless tobacco Do You Dip or Chew Tobacco: Yes Hx Alcohol Use: Yes Alcohol type: beer and hard liquor alcohol intake frequency: a few times a month Hx Substance Use: No substance use type: does not use Physical Exam Vital Signs Last Vital Signs Temp 36.6 C 04/27/19 07:11 Pulse 66 04/27/19 07:13 Resp 18 04/27/19 07:11 BP 179/94 H 04/27/19 09:23 Pulse Ox 97 04/27/19 07:11 Testing Laboratory Results 04/27/19 06:16 04/27/19 06:16 PT 10.6 Seconds (9.0-12.0) 04/27/19 06:16 INR 1.0 (0.9-1.1) 04/27/19 06:16 APTT 25.3 Seconds (21.0-31.0) 04/27/19 06:16 Hemoglobin A1c 5.7 % (4.5-5.6) H 04/26/19 14:40 Urine Color Yellow 04/26/19 14:50 Urine Appearance Clear (Clear) 04/26/19 14:50 Urine pH 5.0 (4.5-7.5) 04/26/19 14:50 Ur Specific [place] 1.021 (1.000-1.030) 04/26/19 14:50 Urine Protein Trace (Negative) H 04/26/19 14:50 Urine Glucose (UA) Negative (Negative) 04/26/19 14:50 Urine Ketones Negative (Negative) 04/26/19 14:50 Urine Nitrite Negative (Negative) 04/26/19 14:50 Ur Leukocyte Esterase Negative (Negative) 04/26/19 14:50 Urine WBC (Auto) 1-5 /hpf (0-5) 04/26/19 14:50 Urine RBC (Auto) 0-4 /hpf (0-4) 04/26/19 14:50 U Hyaline Cast (Auto) 5-10 /lpf (0-5) H 04/26/19 14:50 U Epithel Cells (Auto) 0-5 /lpf (0-5) 04/26/19 14:50 Urine Bacteria (Auto) Negative (Negative) 04/26/19 14:50
--- NOTE | 2019-04-27 09:41 | Anesthesiology Consultation ---
Date of Service April 27, 2019 Assessment & Plan Chart Review Chart Review: Acceptable Risk for Surgery and Patient NOT seen in Pre Admission Testing Consults Requested none ASA [id number] Proposed Anesthesia Anesthesia Type: General History Surgery Operation Date: 04/27/19 10:00 Proposed Procedures p Cystoscopy - Aroldo Quiñonez MD Height/Weight Height: 6 ft Weight: 122.3 kg Allergies Allergy/AdvReac Type Severity Reaction Status Date / Time No Known Allergies Allergy Verified 04/26/19 16:03 Medications Home Medications Medication Instructions Recorded Confirmed Last Taken Liver Aid 1 tab PO QAM 04/26/19 04/26/19 04/26/19 aspirin 81 mg PO QAM 04/26/19 04/26/19 04/26/19 cetirizine [Zyrtec] 10 mg PO QAM 04/26/19 04/26/19 04/26/19 magnesium 250 mg PO QAM 04/26/19 04/26/19 04/26/19 cvmklvyzpjfq-eqmcsvau-iwiglc 1 tab PO QAM 04/26/19 04/26/19 04/26/19 [Multivitamin 50 Plus] omeprazole magnesium [Prilosec OTC] 20 mg PO QAM 04/26/19 04/26/19 04/26/19 Active Medications Generic Name Dose Route Start Last Admin Trade Name Freq PRN Reason Stop Dose Admin Cetirizine HCl 10 mg 04/27/19 09:00 04/27/19 08:02 Zyrtec PO 05/27/19 08:59 10 mg QAM CHAS Administration Hydralazine HCl 10 mg 04/26/19 19:43 04/27/19 07:06 Apresoline PO 05/26/19 20:59 10 mg QID PRN Administration blood pressure high Sodium Chloride 1,000 mls @ 100 mls/hr 04/26/19 18:40 04/27/19 05:06 Nss 1000ml IV 05/26/19 18:39 100 mls/hr .Q10H CHAS Administration Magnesium Oxide 400 mg 04/27/19 09:00 04/27/19 08:02 Mag-Ox PO 05/27/19 08:59 400 mg QAM CHAS Administration Morphine Sulfate 4 mg 04/26/19 18:40 04/27/19 03:52 Morphine Sulfate IV 05/10/19 18:39 4 mg Q2H PRN Administration Pain Multivitamins/Minerals 1 tab 04/27/19 09:00 04/27/19 08:02 Multivitamin W/ Minerals Tab PO 05/27/19 08:59 1 tab QAM CHAS Administration Pantoprazole Sodium 40 mg 04/27/19 09:00 04/27/19 08:02 Protonix PO 05/27/19 08:59 40 mg QAM CHAS Administration Exercise / Class Metabolic Activity III < 4 Walking/Shop/Light housework Past Family History Family History Other No pertinent family history Past Anesthesia History No Hx of Anesthesia Complications and No Family Hx of Anesthesia Complications History of PONV No Hx of PONV and History of PONV Social History Smoking Status: Former smoker tobacco type: smokeless tobacco Do You Dip or Chew Tobacco: Yes Hx Alcohol Use: Yes Alcohol type: beer and hard liquor alcohol intake frequency: a few times a month Hx Substance Use: No substance use type: does not use Physical Exam Vital Signs Last Vital Signs Temp 36.6 C 04/27/19 07:11 Pulse 66 04/27/19 07:13 Resp 18 04/27/19 07:11 BP 179/94 H 04/27/19 09:23 Pulse Ox 97 04/27/19 07:11 Testing Laboratory Results 04/27/19 06:16 04/27/19 06:16 PT 10.6 Seconds (9.0-12.0) 04/27/19 06:16 INR 1.0 (0.9-1.1) 04/27/19 06:16 APTT 25.3 Seconds (21.0-31.0) 04/27/19 06:16 Hemoglobin A1c 5.7 % (4.5-5.6) H 04/26/19 14:40 Urine Color Yellow 04/26/19 14:50 Urine Appearance Clear (Clear) 04/26/19 14:50 Urine pH 5.0 (4.5-7.5) 04/26/19 14:50 Ur Specific [place] 1.021 (1.000-1.030) 04/26/19 14:50 Urine Protein Trace (Negative) H 04/26/19 14:50 Urine Glucose (UA) Negative (Negative) 04/26/19 14:50 Urine Ketones Negative (Negative) 04/26/19 14:50 Urine Nitrite Negative (Negative) 04/26/19 14:50 Ur Leukocyte Esterase Negative (Negative) 04/26/19 14:50 Urine WBC (Auto) 1-5 /hpf (0-5) 04/26/19 14:50 Urine RBC (Auto) 0-4 /hpf (0-4) 04/26/19 14:50 U Hyaline Cast (Auto) 5-10 /lpf (0-5) H 04/26/19 14:50 U Epithel Cells (Auto) 0-5 /lpf (0-5) 04/26/19 14:50 Urine Bacteria (Auto) Negative (Negative) 04/26/19 14:50
[2019-04-27] MEDS ORDERED: IOTHALAMATE MEGLUMINE II 17.2% 250 ML VIAL ONE (09:57)
[2019-04-27] MEDS ORDERED: CIPROFLOXACIN 400 MG/200 ML BAG IV STA (10:25)
--- NOTE | 2019-04-27 10:52 | Gastrointestinal Consultation ---
Date of Consultation Chart reviewed. Pt admit with nephrolithsiasis.mildly increased transaminases, normal alk phos and bili, lipase. LFT's appear improved today. CT shows "steatosis." On "liver aid" per med chart. Would ask primary service to follow for symptoms of biliary obstruction, to review alcohol and medication history with patient - including herbal suppleme nts and tylenol use, and to follow LFT's. If pt is asymptomatic, with stable LFTs, and without symptoms of biliary obstruction, there is no indication for further inpt w/u; pt can follow up with PCP regarding this issue. If pt develops symptoms of biliary obstructio, please consider ultrasound and re- consulting GI. Would ask primary service to review this plan with patient. I will defer any w/ u and arrangement of follow up to primary service. Please call with questions. April 27, 2019 History of Present Illness Attending Physician: Asif Mccoy MD Allergies Allergy/AdvReac Type Severity Reaction Status Date / Time No Known Allergies Allergy Verified 04/26/19 16:03 Home Medications Home Medications Medication Instructions Recorded Confirmed Type Liver Aid 1 tab PO QAM 04/26/19 04/26/19 History aspirin 81 mg PO QAM 04/26/19 04/26/19 History cetirizine [Zyrtec] 10 mg PO QAM 04/26/19 04/26/19 History magnesium 250 mg PO QAM 04/26/19 04/26/19 History odlsalptzhla-vrypzsrf-lkswtc 1 tab PO QAM 04/26/19 04/26/19 History [Multivitamin 50 Plus] omeprazole magnesium [Prilosec OTC] 20 mg PO QAM 04/26/19 04/26/19 History Patient History Family History Other No pertinent family history Social History 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: No Beliefs That Will Affect Care: None marital status: Current Living Situation: Spouse and Family current occupational status: employed Feels Safe at Home: Yes Smoking Status: Former smoker Tobacco Type: smokeless tobacco ; Second Hand Exposure: Yes ; Hx Alcohol Use: Yes Alcohol type: beer and hard liquor Hx Substance Use: No Results & Data ([facility]) Vital Signs (Past 12 Hours) Vital Signs Temp Pulse Pulse Resp BP BP Pulse Ox 04/27/19 09:23 179/94 H 04/27/19 07:13 66 04/27/19 07:11 36.6 C 59 L 18 97 04/27/19 07:02 182/78 H 04/27/19 05:06 171/87 H 04/27/19 03:20 36.6 C 66 20 193/100 H 93 04/27/19 01:22 75 04/26/19 23:02 36.5 C 63 20 173/93 H 95
--- NOTE | 2019-04-27 11:06 | Post Operative Brief Note ---
PG Immediate Post Op with CF Date of Surgery April 27, 2019 Pre & Post Diagnosis Operation Date: 04/27/19 10:00 Pre-Op Diagnosis: left proximal ureteral stone Post-Op Diagnosis: left proximal ureteral stone I identified the patient and participated in the time-out.: Yes Procedure Operation Date: 04/27/19 10:00 Actual Procedures p Cystoscopy, left retrograde , l ureteroscopy, left stent placement(Left) - Aroldo Quiñonez MD Surgeon Aroldo Quiñonez MD Internet Marketer none Estimated Blood Loss 10 Findings Consistent with Post-Op Diagnosis
--- NOTE | 2019-04-27 11:07 | Post Operative Brief Note ---
PG Immediate Post Op with CF Date of Surgery April 27, 2019 Pre & Post Diagnosis Operation Date: 04/27/19 10:00 Pre-Op Diagnosis: left proximal ureteral stone Post-Op Diagnosis: left proximal ureteral stone I identified the patient and participated in the time-out.: Yes Procedure Operation Date: 04/27/19 10:00 Actual Procedures p Cystoscopy, left retrograde ureteroscopy, left stent placement(Left) - Aroldo Quiñonez MD Surgeon Aroldo Quiñonez MD Support Services Specialist none Estimated Blood Loss 10 Findings Consistent with Post-Op Diagnosis
[2019-04-27] MEDS ORDERED: ONDANSETRON INJ 2 MG/ML 2 ML VIAL IV PRN (11:12)
[2019-04-27] MEDS ORDERED: FLUMAZENIL 0.1 MG/1 ML 10 ML VIAL IV PRN (11:12)
[2019-04-27] MEDS ORDERED: PROMETHAZINE HCL 12.5 MG in SODIUM CHLORIDE 0.9% 50 ML IV PRN (11:12)
[2019-04-27] MEDS ORDERED: ePHEDrine sulfate 50 MG/ML AMP IV PRN (11:12)
[2019-04-27] MEDS ORDERED: NALOXONE HCL 0.4 MG/1 ML VIAL/CARP IV PRN (11:12)
[2019-04-27] MEDS ORDERED: HYDROmorphone INJ 1 MG/ML SYRINGE IV PRN (11:12)
[2019-04-27] MEDS ORDERED: fentaNYL citrate 100 MCG/2 ML VIAL IV PRN (11:12)
[2019-04-27] MEDS ORDERED: ATROPINE SULFATE 0.1 MG/ML 10ML SYR IV PRN (11:12)
--- NOTE | 2019-04-27 11:30 | Hospitalist Progress Note ---
Date of Service April 27, 2019 Assessment & Plan (1) Nephrolithiasis: Nephrolithiasis demonstrated with imaging Urology consulted Dr. Quiñonez following Anticipate add-on with the OR today for stent and/or retrieval Further management per Dr. Quiñonez (2) Hydronephrosis: Secondary to nephrolithiasis Urology following CVA tenderness is resolved No fever Continue to watch urine output (3) Elevated transaminase level: Patient with consumption of 6 beers nightly LFTs improving since admission Continue IV hydration Follow serial labs Hepatitis panel is pending (4) Alcohol use: Patient drinks 5-6 beers nightly Watch for alcohol withdrawal * No current symptoms (5) Hypertension: Patient denies history of hypertension May be provoked by pain Suspect that this is chronic based on body habitus No previous medical records to review Will follow postsurgically Target SBP of less than 140 Obtain baseline EKG (6) Hypercholesterolemia: Cholesterol 210 LDL 121 VLDL 21 HDL 68 Would suggest diet modification and decreasing ethanol consumption Follow outpatient with primary care physician Please see Dr. Mccoy's addendum for further recommendations. Admission and Anticipated Discharge Date Admission Date: April 26, 2019 Subjective Attending: Dr. Asif Mccoy Is a 53-year-old male that presents with acute nephrolithiasis and l eft-sided hydronephrosis. Patient has been seen and evaluated by urology and is an add-on for the OR today. KUB this morning is pending. Patient denies any acute complaints. He has no chest pain or tightness. He has no shortness of breath. He has no cough. He has no acute bleeding. CVA tenderness is resolved. The patient is noted to have hypertension this morning. He states that this is never been a problem in the past. He denies any acute pain at this time. Patient is afebrile. Review of Systems Review of Systems: All systems reviewed & are unremarkable except as noted in HPI & below Physical Exam Physical Exam: GENERAL : No acute distress. Able to mobilize in bed without any pain. EYES: No icterus, gaze conjugate. Pupils equal round and reactive to light NOSE: No evidence of epistaxis MOUTH: No lesions or candidiasis. Mucosa is moist NECK: Supple LUNGS: CTA B/L, no wheezes, rales or rhonchi BACK: No CVA tenderness bilaterally HEART: Regular, rate in the 90s ABDOMEN: Soft, NT, ND, BS Present EXTREMITIES: No LE edema, pedal pulses intact NEURO: A&OX3 Results & Data ([facility]) Vital Signs (Past 12 Hours) Vital Signs Temp Pulse Pulse Resp BP BP Pulse Ox 04/27/19 09:23 179/94 H 04/27/19 07:13 66 04/27/19 07:11 36.6 C 59 L 18 97 04/27/19 07:02 182/78 H 04/27/19 05:06 171/87 H 04/27/19 03:20 36.6 C 66 20 193/100 H 93 04/27/19 01:22 75 Laboratory Results 04/27/19 06:16 04/27/19 06:16 INR 1.0 (0.9-1.1) 04/27/19 06:16 Diagnostic Findings XR KUB/Abdomen 1 view 04/27/2019 CLINICAL HISTORY: 53 years-old Male presenting with ureteral stone. TECHNIQUE: Single supine view of the abdomen was obtained. COMPARISON: CT from yesterday. FINDINGS: Nonobstructive bowel gas pattern. No gross pneumoperitoneum. 5 mm calcification noted along the course of the left ureter at the level of L4. This is likely slightly progressed from the prior exam. Stable distribution of pelvic phleboliths. The right renal calculus evident on CT is not well demonstrated on this exam. Mild degenerative changes of the spine. Lung bases clear. IMPRESSION: 1. Slight interval progression of the 5 mm left ureteral calculus now located at the level of L4. 2. Right nephrolithiasis better demonstrated on prior CT. ACT 112: Negative or not required by law. Electronically signed by: Minh Christensen M.D. 04/27/2019 9:06 AM PG Care Time/CCT Total # of Minutes Spent Total Time Spent with Patient: Total time spent is greater than 50[facility] (as documented) at patient's floor/unit and/or counseling patient: Coding Level of Care Code 54977 Subseq Hosp Care Lvl 3 Diagnoses Nephrolithiasis N20.0 Hydronephrosis N13.30 Hydronephrosis type: unspecified Elevated transaminase level R74.0 Alcohol use Z72.89 Hypertension I10 Hypercholesterolemia E78.00 (1) Hydronephrosis Hydronephrosis type: unspecified Qualified Code(s): N13.30 - Unspecified hydronephrosis
--- NOTE | 2019-04-27 11:33 | Fluoroscopy Report ---
FL retrograde includes kub CLINICAL HISTORY: 53 years-old Male presenting with CYSTO POSSIBLE LT URETERAL STENT/ POSSIBLE LASER. TECHNIQUE: 7 fluoroscopic image(s) recorded as part of an intraoperative procedure. COMPARISON: CT from 04/26/2019 and plain radiograph from 05/07/2019. FINDINGS/IMPRESSION: A guidewire was advanced into the left ureter. The left renal collecting system was opacified with co ntrast and noted to be only mildly dilated. Subsequently, a left ureteral stent was placed. Please see surgical report for further details. Fluoroscopy dosage (mGy): 25.13. Fluoroscopy time: 40.7 seconds. Number or time of high level fluoroscopy (HLF), digital spot, or digital subtraction images: 0. ACT 112: Negative or not required by law. Electronically signed by: Minh Christensen M.D. 04/27/2019 11:31 AM
[2019-04-27] MEDS ORDERED: LABETALOL HCL IV 5 MG/ML 20ML IV ONE (11:45)
[2019-04-27] MEDS: LABETALOL HCL IV 5 MG/ML 20ML IV PRN ×2 (11:45→11:50)
--- NOTE | 2019-04-27 11:53 | Anesthesiology Progress Note ---
Date of Service April 27, 2019 Anesthesia Post Procedure Vital Signs Vital Signs: Temp Pulse Pulse Pulse Resp BP BP 04/27/19 11:42 69 21 166/97 H 04/27/19 11:35 70 16 178/94 H 04/27/19 11:25 68 17 177/101 H 04/27/19 11:16 36.4 C L 73 19 147/88 H 04/27/19 09:23 04/27/19 07:13 66 04/27/19 07:11 36.6 C 59 L 18 04/27/19 07:02 182/78 H 04/27/19 05:06 04/27/19 03:20 36.6 C 66 20 193/100 H 04/27/19 01:22 75 04/26/19 23:02 36.5 C 63 20 173/93 H 04/26/19 21:26 162/92 H 04/26/19 19:03 36.8 C 65 65 14 187/100 H 04/26/19 17:00 66 22 177/97 H 04/26/19 16:08 72 24 195/117 H 04/26/19 15:27 79 22 183/113 H 04/26/19 15:08 04/26/19 14:58 04/26/19 14:12 36.3 C L 63 20 221/115 H BP Pulse Ox 04/27/19 11:42 98 04/27/19 11:35 96 04/27/19 11:25 95 04/27/19 11:16 95 04/27/19 09:23 179/94 H 04/27/19 07:13 04/27/19 07:11 97 04/27/19 07:02 04/27/19 05:06 171/87 H 04/27/19 03:20 93 04/27/19 01:22 04/26/19 23:02 95 04/26/19 21:26 88 L 04/26/19 19:03 89 L 04/26/19 17:00 98 04/26/19 16:08 94 04/26/19 15:27 95 04/26/19 15:08 95 04/26/19 14:58 86 L 04/26/19 14:12 95 Pain Intensity Abdomen: Pain Intensity: 6 Left Flank: Pain Intensity: 6 Transfer of Care Handoff Completed per policy Notes Mental Status: alert / awake / arousable Patient Amnestic to Procedure: Yes Nausea / Vomiting: adequately controlled Pain: adequately controlled Airway Patency, RR, SpO2: stable & adequate BP & HR: stable & adequate Hydration State: stable & adequate Anesthetic Complications: no major complications apparent
--- NOTE | 2019-04-27 15:06 | XRay Report ---
XR KUB/Abdomen 1 view CLINICAL HISTORY: 53 years-old Male presenting with left ureteral stone. TECHNIQUE: Single supine view of the abdomen was obtained. COMPARISON: 04/27/2019. FINDINGS: Mild stool burden. Nonobstructive bowel gas pattern. No gross pneumoperitoneum. Interval placement of a left ureteral stent. 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 It is not demonstrable on this radiograph whether this is within the upper pole or lower pole moiety ureter. The prior 5 mm calculus projecting at the level of L4 is no longer visuali zed. Redemonstration of pelvic phleboliths. Degenerative changes of the spine. IMPRESSION: 1. Interval placement of a left ureteral stent in one of the 2 left ureters in the setting of a dupl icated collecting system. 2. Nonvisualization of the prior left ureteral calculus. This may indicate passage. Follow-up recomm ended. ACT 112: Negative or not required by law. Electronically signed by: iMnh Christensen M.D. 04/27/2019 3:05 PM
--- NOTE | 2019-04-27 16:16 | Discharge Summary ---
Date of Service April 27, 2019 Admission HPI Per Admitting Provider The patient is a 54 years old male without significant past medical history who presents to the emergency room complaining of left flank pain that started this morning and it was worsening. Patient denies fever, chills, chest pain, shortness of breath, abdominal pain, frequency, urgency. Labs are reviewed: WBC is 8.58, hemoglobin 16.1, hematocrit 46.4, platelets 144, sodium 139, potassium 3.7, chloride 105, carbon dioxide 27, BUN 17, creatinine 1.2, GFR 69.1, AST 132, ALT 231, alkaline phosphatase 71, total protein 7.8, albumin 3.8, globulin 4, lipase 310. Abdominal CT shows lung bases are unremarkable, a 9 mm x 4 mm proximal left ureteral calculus that results in mild to moderate left hydronephrosis with delayed nephrogram and perinephritic infiltration. Note is made of a 4 mm left renal calculus and a 4 mm calculus within the lower pole of the right kidney. Fatty infiltration of the liver is noted. The spleen and adrenal glands and pancreas are normal. There is no evidence for a bowel obstruction. The appendix is normal. There is no suspicious osseous lesion. There is no evidence for a bowel obstruction. No biliary or pancreatic duct dilatation is noted. Chest x-ray no acute process. Minimal dependent bibasilar atelectasis. No pneumothorax, pleural effusion, overt pulmonary edema or airspace consolidation typical for pneumonia. Cardiac silhouette is upper limit of the normal in size. Mild degenerative changes of the shoulders and spine. Decision was made to admit patient to [facility] on telemetry for further evaluation and treatment of nephrolithiasis and possible surgical intervention. Admission Exam Per Admitting Provider Constitutional: WD/WN, vitals as above well developed, + ill appearing and + morbidly obese Eyes: PERRL, conjunctivae normal, anicteric sclerae ENMT: external ear and nose normal, oropharynx normal Neck: trachea midline, no thyromegaly Respiratory: normal respiratory effort, lungs clear to auscultation Cardiovascular: RRR, no murmur, no edema Rate/Rhythm: + tachycardic Gastrointestinal (Abdomen): normal bowel sounds, soft, nontender, no hepatosplenomegaly Musculoskeletal: no cyanosis or clubbing, extremities motor strength 5/5 Skin: no rashes, warm and dry Neurologic: patellar DTR's 2+ bilat, sensation intact Psychiatric: A+Ox3, euthymic affect Lymphatic: no cervical or axillary lymphadenopathy Principal Diagnosis Left nephrolithiasis Left hydronephrosis Discharge Exam GENERAL : No acute distress. Able to mobilize in bed without any pain. EYES: No icterus, gaze conjugate. Pupils equal round and reactive to light NOSE: No evidence of epistaxis MOUTH: No lesions or candidiasis. Mucosa is moist NECK: Supple LUNGS: CTA B/L, no wheezes, rales or rhonchi BACK: No CVA tenderness bilaterally HEART: Regular, rate in the 90s ABDOMEN: Soft, NT, ND, BS Present EXTREMITIES: No LE edema, pedal pulses intact NEURO: A&OX3 Discharge Data Allergies Allergy/AdvReac Type Severity Reaction Status Date / Time No Known Allergies Allergy Verified 04/26/19 16:03 Consultations 04/26/19 16:06 ED Decision to Admit Stat 04/26/19 18:40 Consult Gastroenterology Routine Consult Urology Routine Procedures Performed Operation Date: 04/27/19 10:00 Actual Procedures p Cystoscopy, left retrograde ureteroscopy, left stent placement(Left) - Aroldo Quiñonez MD Ordered Studies 04/26/19 14:24 CT abd pelvis IV con only Stat 04/27/19 09:28 FL retrograde includes kub Routine Hospital Course (1) Nephrolithiasis: Nephrolithiasis demonstrated with imaging Urology consulted Dr. Quiñonez following Left ureteral stent placement (2) Hydronephrosis: Secondary to nephrolithiasis Urology following CVA tenderness is resolved No fever Continue to watch urine output (3) Elevated transaminase level: Patient with consumption of 6 beers nightly LFTs improving since admission Continue IV hydration Follow serial labs Hepatitis panel is pending Patient instructed to follow-up with primary care physician (4) Alcohol use: Patient drinks 5-6 beers nightly Watch for alcohol withdrawal * No current symptoms (5) Hypertension: Patient denies history of hypertension May be provoked by pain Suspect that this is chronic based on body habitus No previous medical records to review Target SBP of less than 140 Patient started on lisinopril 20 mg p.o. daily. 1 dose was given to patient prior to discharge. 30-day supply electronically transmitted to [facility] in [place] (6) Hypercholesterolemia: Cholesterol 210 LDL 121 VLDL 21 HDL 68 Would suggest diet modification and decreasing ethanol consumption Follow outpatient with primary care physician Patient was discharged with Henrry handouts for hypertension, high cholesterol, kidney stones, reducing risk of kidney stones, reducing risk factors for cardiac disease and cholesterol Patient seen and examined by Dr. Asif Mccoy prior to discharge Total Time Total Time Spent Total Time Spent (In Minutes): 40 minutes Total Time Includes: Discharge Planning, Medication Reconciliation and Communication With Other Providers Discharge Plan Discharge Items Patient Disposition: Home - Self-Care Reason For Visit: LEFT FLANK PAIN Discharge Diagnosis: Left nephrolithiasis Hydronephrosis Hypertension Condition on Discharge: Good Activity: Resume your previous activity Lifting: Gradually increase as tolerated Bathing: No limitations Sexual Activity: When tolerated Exercise/Sports: Gradually increase as tolerated Driving/Machine Use: Resume 1 day after discharge Weightbearing: Full weightbearing Non-emergency contact: Primary Care Provider Call non-emergency contact if: you have any medication questions, your pain is concerning for you and your temperature is above 101 Follow-up/Referrals: Mary Jameson CRNP [Primary Care Provider] - Diet: Heart Healthy Addtl Attending Provider Instructions: Increase fluid intake as tolerated Limit alcohol intake Abstention from tobacco products Pending Studies at Discharge: No Stand-Alone Forms: My Accertify, Smoking Cessation Medications and DC Order Prescriptions: New lisinopril 20 mg Tablet 20 mg PO QAM 30 Days Qty: 30 RF: 0 Continued cetirizine [Zyrtec] 10 mg Tablet 10 mg PO QAM RF: 0 aspirin 81 mg Tablet,Delayed Release (Dr/Ec) 81 mg PO QAM RF: 0 magnesium 250 mg Tablet 250 mg PO QAM RF: 0 Multivitamin 50 Plus Tablet 1 tab PO QAM RF: 0 Prilosec OTC 20 mg Tablet,Delayed Release (Dr/Ec) 20 mg PO QAM RF: 0 Liver Aid 1 tab PO QAM RF: 0 Discharge Orders: Discharge Order (Routine); Ordered 04/27/19 Ordered By: Manuel Sales/Other Patient Handouts: Cholesterol Control, High Blood Pressure Risk Factors, Kidney Stones, Kidney Stones Prevent, Cholesterol Lifestyle Changes, High Blood Pressure Admission Data Admit Date/Time: 04/26/19 17:10 Attending Provider: Asif Mccoy Admit Provider: Marianne Mejia Primary Care Provider: Mary Jameson Other Providers: Asif Mccoy ; Marianne Mejia ; Mikayla Alvarado ; Aroldo Quiñonez Other Interventions: Discharge Summary Assessment (RN) Last Done: 04/27/19 16:15 PR Date/Time DO NOT enter until pt leaves facility: 04/27/19 16:31 Supervising Physician Co-Signing Physician Notes I supervised Manuel Martinez PA-C on this patient's care. I examined the patient today independently of him. I discussed the plan of care with him with the plan being as written in his note except for any following changes/exceptions: None. Patient in no pain at present. Requests discharge. Counseled follow up for his kidney stone and general lifestyle modification including significant reduction in his drinking and no tobacco chewing. Will start low-dose lisinopril for his continued HTN while inpatient. He reports no HTN at home, so I asked that he check his BP daily in the mornings and take this to his PCP. If his BP lower back to his reported baseline (120/80), he may not need the HTN medication. He will take his BP cuff to his PCP's office to be sure it is accurate. Coding Level of Care Code D/C Day Management >30 mins Diagnoses Nephrolithiasis N20.0 Hydronephrosis N13.30 Hydronephrosis type: unspecified Elevated transaminase level R74.0 Alcohol use Z72.89 Hypertension I10 Hypercholesterolemia E78.00 Time Spent (min) 40
[2019-04-27] MEDS ORDERED: lisinopriL 20 MG TAB PO SCH (16:30)
--- NOTE | 2019-04-27 22:51 | Operative Report ---
DATE OF OPERATION: 04/27/2019 PROCEDURES PERFORMED: Cystoscopy, left retrograde left balloon dilation of distal left ureteroscopy and left stent placement. HISTORY OF PRESENTATION: The patient is a 53-year-old male who presented with a left ureteral stone on CT after several days of severe pain. The patient came to the Emergency Room, had a CT scan which showed a proximal ureteral stone. This pain was ongoing overnight. He also had elevated liver function studies, which is going to be evaluated by gastroenterology. He has a fatty liver on the CT. He Does drink a large amount of alcohol. The patient elected to undergo cystoscopy and stent placement with possible ureteroscopy if the stone was able to be reached. On the CT, it was just below the UPJ. Stone was [address] DESCRIPTION OF THE PROCEDURE: The patient was taken to the cysto suite. He received preoperative antibiotics, had Venodyne stockings placed and was placed in dorsal lithotomy position, prepped and draped in the usual sterile fashion. A 21-Montenegrin cystoscope was passed per urethra. Retrograde was done from the left ureter and it was clear that the KUB which had been done in the morning which showed 2 fragments which I thought had been distal migration of the stone were not stones. There were lateral to the ureter. Therefore, did not appear that the stone had migrated much and was somewhat hard to see. A dual flex guidewire was passed beyond the proximal stone and at this point, the distal ureter was dilated, so that I could pass a flexible ureteroscope. After this was performed, a second guidewire was passed as a safety wire and the ureteroscope was passed over the wire into the proximal ureter beyond the narrow area where the stone had been, but no longer appeared to be in the proximal ureter and then beyond another narrowed area, I was able to negotiate the scope over the wire, but then there was a third narrow area closer to the kidney that the scope did not be easily want to go through and because it appeared that the stone already been pushed up into the kidney and I did not want to damage to the ureter near the UPJ. I stopped at this point and removed the ureteroscope, left the safety wire in place and placed a 6-Montenegrin 26-cm stent with strings at the distal end of the stent for comfort. The patient's bladder was emptied and then he was transferred to the recovery room in stable condition. I attest to the content of the Intraoperative Record and any orders documented therein. Any exception s are noted below.
[2019-04-29 11:55] LABS: AFP Tumor Marker Serum 5.4 ng/mL (<6.1); Hepatitis A Antibody IgM NON-REACTIVE (NON-REACTIVE); Hepatitis B Core Antibody IgM NON-REACTIVE (NON-REACTIVE)
== END 2019-04-27 16:31 | disposition home or self-care (01) | DRG 661 ==
LOC: ED 14:11 → SUATTDRO 17:10 → 2N 17:10 → 3N 04-27 12:27